=== PATIENT | female | born 1955 | race Caucasian/White ===

== ENCOUNTER → 2016-09-26 | Outpatient (CLI) | payer OTHER ==
[~2016-09-26] MED LIST: ALPRAZOLAM0.5 MG PO; CARDURA 2MG TAB2 MG PO; IBUPROFEN800 MG PO; LASIX20 MG PO; LISINOPRIL20 MG PO; MAGNESIUM400 MG PO; NORCO 10-325 T1 EACH PO; NORVASC 5 MG TAB5 MG PO; PANTOPRAZOLE SO40 MG PO; TOPROL XL25 MG PO
[2016-09-26 07:17] LABS: HEMOGLOBIN 12.9 gm/dl (12.3-15.3); RED BLOOD COUNT 4.14 M/UL (4.00-5.10); WHITE BLOOD COUNT 4.3 K/UL (4.5-11.0)
[2016-09-26 07:30] LABS: BUN/CREATININE RATIO 24 (0-10)
== END | disposition home or self-care (01) ==
LOC: CATH 06:26
PROVIDERS: Internal Medicine Cardiovascular Disease
DX: I25.118 Atherosclerotic heart disease of native coronary artery with other forms of angina pectoris (principal); R94.39 Abnormal result of other cardiovascular function study; Q23.1 Congenital insufficiency of aortic valve; I35.0 Nonrheumatic aortic (valve) stenosis; I10 Essential (primary) hypertension; Z87.891 Personal history of nicotine dependence; Z79.1 Long term (current) use of non-steroidal anti-inflammatories (NSAID); Z79.891 Long term (current) use of opiate analgesic; Z79.899 Other long term (current) drug therapy; R01.1 Cardiac murmur, unspecified; R60.9 Edema, unspecified; K21.9 Gastro-esophageal reflux disease without esophagitis; M10.9 Gout, unspecified
CPT/HCPCS: 36415; 80048; 85025; 85610; 85730; 93005; C1769; C1894; J1644; J2250; J3010; J7030; Q0163; Q9963